=== PATIENT | female | born 1955 | race Caucasian/White ===

== ENCOUNTER 2016-11-30 10:05 | Emergency (ER) | payer OTHER ==
[2016-11-30 10:19] VITALS: BMI 28.3
[2016-11-30 10:22] VITALS: BP 198/97
[2016-11-30] MEDS ORDERED: MORPHINE SULFATE INJ 4 MG IM ONE (10:30)
[2016-11-30] MEDS ORDERED: MORPHINE SULFATE INJ 4 MG ONE (10:32)
--- NOTE | 2016-11-30 10:33 | DR.EXTPAIN ---
HPI - Time seen Time seen: 10:25 - PCP Primary Care Physician: DR. MICHAEL - Complaint/Symptoms Chief Complaint Doctor Comments: I agree with statement. Patient states that she slipped on the floor and landed on her left shoulder. She could not move the arm w/o pain Chief Complaint:: AT 0930 THIS AM PT STATES " I WENT TO THE BATHROOM AT THE [facility] AND THE FLOOR WAS GREECIE AND I FEEL ON THE FLOOT AND MY LEFT SHOULDER IS HURTING " - Source History Provided: Patient - Mode of arrival Mode of Arrival: Ambulatory - Timing Onset of Chief Complaint: 11/30/16 PMH - PMH Past Medical History: No Past Surgical History: Yes Surgical History: Appendectomy - Family History History of Family Medical Conditions: Yes Family Medical History: Hypertension - Social History Does patient currently use any type of tobacco product: No Have you used tobacco products in the last 12 months: No Type of Tobacco Use: None Does any household member use tobacco: No Alcohol Use: None Do you use any recreational Drugs:: No Lives With: Family Lives Where: Home - infectious screening In the last 2 months have you had wt loss of >10#?: NO Have you had fever, night sweats or hemotysis?: No Have you traveled outside the country in the last 6 months?: No Isolation: Standard ROS - Review of Systems Eyes: No Symptoms Reported ENTM: No Symptoms Reported Respiratoy: No Symptoms Reported Cardiovascular: No Symptoms Reported Gastrointestinal/Abdominal: No Symptoms Reported Genitourinary: No Symptoms Reported Neurological: No Symptoms Reported Musculoskeletal: No Symptoms Reported Integumentary: No Symptoms Reported Hematologic/Lymphatic: No Symptoms Reported Endocrine: No Symptoms Reported Psychiatric: No Symptoms Reported All Other Systems: Reviewed and Negative PE - Vital Signs Vitals: Temperature 98.0 F Pulse Rate 70 Respiratory Rate 20 Blood Pressure 198/97 O2 Sat by Pulse Oximetry 99 - General Limitations: No Limitations General Appearance: Alert, In No Apparent Distress - Head Head Exam: Normal Inspection, Atraumatic - Eyes Eye exam: Normal Appearance, PERRL, EOMI - ENT ENT Exam: Normal Exam - Neck Neck Exam: Normal Inspection, Full ROM - Chest Chest Inspection: Normal Inspection - Respiratory Respiratory Exam: Normal Lung Sounds Bilat Respiratory Exam: Bilateral Clear to Auscultation - Cardiovascular Cardiovascular Exam: Regular Rate, Normal Rhythm - Abdominal Exam Abdominal Exam: Normal Inspection, Normal Bowel Sounds Abdominal Tenderness: negative: RUQ, RLQ, LUQ, LLQ, Epigastrium, Suprapubic, Diffuse, Mild, Moderate, Severe, Other - Extremities Extremities Exam: Normal Inspection - Upper Extremities Shoulder Exam: Full ROM (too painful for ROM), Tenderness, Tenderness over AC Joint Arm Exam: Normal Inspection, Full ROM Elbow Exam: Normal Inspection, Full ROM Forearm Exam: Normal Inspection, Full ROM Hand Exam: Normal Inspection, Full ROM Neuromotor Exam: Normal Exam Neurosensory Exam: Normal Exam Hand Tendon Exam: Flexor Digitorium Profundus (Location), Flexor Digitorium Superficialis (Location) - Lower Extremities Hip/Pelvis Exam: Normal Inspection, Full ROM Upper Leg Exam: Normal Inspection Knee Exam: Normal Inspection, Full ROM Lower Leg Exam: Normal Inspection Ankle Exam: Normal Inspection Foot/Toe Exam: Normal Inspection Neurovascular/Tendon Exam: Normal Capillary Refill - Back Back Exam: Normal Inspection, Full ROM - Neurological Neurological Exam: Alert, Oriented X3, CN II-XII Intact - Psychiatric Psychiatric Exam: Normal Affect, Normal Mood - Skin Skin Exam: Warm, Dry, Intact Course - Consultation Consultation Comments: I spoke with Dr Knox at 1115 discussed the left humeral neck fracture; he stated that he would see patient tomorrow in his office. His office staff is to call with the appointment time. ROR - XRAY XRAY Interpreted by: Radiologist (Shoulder: Acute fracture of the left humeral neck) Procedures - Procedure Comments Procedures: Sling and swathe - Diagnosis Discharge Problem: Fracture of neck of left humerus Qualifiers: Encounter type: initial encounter Fracture type: closed Qualified Code(s): S42.212A - Unspecified displaced fracture of surgical neck of left humerus, initial encounter for closed fracture - Discharge Plan Condition: Stable - Follow ups/Referrals Follow ups/Referrals: NFD,None [Primary Care Provider] - 3 days - Instructions
--- NOTE | 2016-11-30 10:59 | RAD ---
HISTORY: Fall with left shoulder pain Study: 3 views of the left shoulder. Comparison: None Findings: Acute fracture of the left humeral neck. The glenohumeral articulation is normal in its appearance. No gross soft tissue abnormalities. The acromioclavicular joint is normal in appearance. IMPRESSION: 1. Acute fracture of the left humeral neck. Reported By:
== END 2016-11-30 12:12 | disposition home or self-care (01) ==
LOC: EDBD → ER 10:30
DX: S42.212A Unspecified displaced fracture of surgical neck of left humerus, initial encounter for closed fracture (principal); W19.XXXA Unspecified fall, initial encounter; Y92.511 Restaurant or cafe as the place of occurrence of the external cause
CPT/HCPCS: 73030; 96372; 99282; 99283; J2270

== ENCOUNTER → 2016-12-01 | Outpatient (CLI) | payer OTHER ==
[2016-11-30 10:22] VITALS: BP 198/97
[2016-12-01 14:19] LABS: BASOPHILS % (AUTO) 0.6 % (0.2-1.0); EOSINOPHILS # (AUTO) 0.1 x10^3/uL (0.0-0.2); EOSINOPHILS % (AUTO) 1.5 % (0.9-2.9); HEMATOCRIT 38.2 % (36.0-47.0); HEMOGLOBIN 13.3 g/dL (12.0-16.0); LYMPHOCYTES # (AUTO) 1.1 X10^3/uL (1.3-2.9); MEAN CORPUSCULAR HEMOGLOBIN 30.6 pg (27.0-34.0); MEAN CORPUSCULAR VOLUME 87.6 fL (80.0-100.0); MEAN PLATELET VOLUME 8.8 fL (7.4-11.0); MONOCYTES # (AUTO) 0.6 x10^3/uL (0.3-0.8); NEUTROPHILS # (AUTO) 5.8 x10^3/uL (2.2-4.8); NEUTROPHILS % (AUTO) 75.9 % (42.0-75.0); PLATELET COUNT 224 X10^3/uL (150.0-450.0); RED BLOOD COUNT 4.35 X10^6/uL (3.5-5.4); RED CELL DISTRIBUTION WIDTH 13.1 % (11.6-16.5); WHITE BLOOD COUNT 7.6 X10^3/uL (3.6-10.0)
[2016-12-01 14:21] LABS: APPEARANCE,URINE SLIGHTLY HAZY (CLEAR); BLOOD/HEMOGLOBIN,URINE 3+ (NEGATIVE); COLOR,URINE YELLOW (YELLOW); GLUCOSE, URINE NEGATIVE (NEGATIVE); KETONES,URINE NEGATIVE (NEGATIVE); NITRITES,URINE NEGATIVE (NEGATIVE); PROTEIN,URINE 1+ (NEGATIVE)
[2016-12-01 14:22] LABS: BACTERIA,URINE NEGATIVE /HPF (NEGATIVE); BILIRUBIN,URINE NEGATIVE (NEGATIVE); LEUKOCYTE ESTERASE ,URINE NEGATIVE (NEGATIVE); RBC,URINE 0-3 /HPF (NEGATIVE); SQUAMOUS EPITHELIAL CELL,UR RARE /HPF (NEGATIVE); UROBILINOGEN,URINE NORMAL (NORMAL)
[2016-12-01 14:33] LABS: ALANINE AMINOTRANSFERASE 26 Units/L (12-78); ALKALINE PHOSPHATASE 51 Units/L (46-116); ASPARTATE AMINO TRANSFERASE 17 Units/L (15-37); BLOOD UREA NITROGEN 15 mg/dL (7-18); CALCIUM 8.7 mg/dL (8.5-10.1); CARBON DIOXIDE 29.6 mmol/L (21-32); CHLORIDE 103 mmol/L (98-107); CREATININE 0.68 mg/dL (0.55-1.02); GLUCOSE 101 mg/dL (65-99); SODIUM 139 mmol/L (136-145); TOTAL PROTEIN 7.4 g/dL (6.4-8.2); eGFR BLACK RACES > 60 (>60); eGFR NON BLACK RACES > 60 (>60)
== END ==
LOC: LAB 10:30 → EDBD 10:30 → LAB 12:49
PROVIDERS: ATTEND Orthopaedic Surgery
DX: Z01.818 Encounter for other preprocedural examination (principal); Z01.810 Encounter for preprocedural cardiovascular examination; Z01.811 Encounter for preprocedural respiratory examination; Z79.899 Other long term (current) drug therapy; Z11.8 Encounter for screening for other infectious and parasitic diseases; S42.292A Other displaced fracture of upper end of left humerus, initial encounter for closed fracture; X58.XXXA Exposure to other specified factors, initial encounter
CPT/HCPCS: 36415; 80053; 81001; 85025; 87641

== ENCOUNTER 2016-12-03 09:36 | Day surgery (SDC) | payer OTHER ==
[2016-12-03] MEDS ORDERED: NS 50 ML IV + SPIKE MINIBAG* 50 ML IV ONE (09:43)
[2016-12-03] MEDS ORDERED: D5 LR 1000 ML 1,000 ML IV ONE (09:43)
[2016-12-03] MEDS ORDERED: ANCEF VIAL 1 GM ONE (09:43)
[2016-12-03] MEDS ORDERED: NAROPIN 0.75% ONE (10:12)
[2016-12-03] MEDS ORDERED: XYLOCAINE 2 % (PLAIN) ONE ×2 (10:13→14:58)
[2016-12-03] MEDS ORDERED: VERSED IVP ONE (10:15)
[2016-12-03] MEDS: FENTANYL INJ 250 mcg ONE ×2 (10:15→15:30)
[2016-12-03] MEDS ORDERED: NS IRRIGATION 1000 ML 1,000 ML with BACITRACIN VIAL 50,000 UNT IR ONE ×4 (12:10→14:20)
[2016-12-03] MEDS ORDERED: BENADRYL INJ 50 MG VIAL IVP PRN (13:37)
[2016-12-03] MEDS ORDERED: ZOFRAN INJ 4 MG VIAL IVP PRN (13:37)
[2016-12-03] MEDS ORDERED: REGLAN INJ 10 MG VIAL IVP PRN (13:37)
[2016-12-03] MEDS ORDERED: PHENERGAN INJ 25 MG IVP PRN (13:37)
[2016-12-03] MEDS ORDERED: MARCAINE 0.25% INJ ONE (13:56)
[2016-12-03] MEDS ORDERED: BACTROBAN OINT ONE (14:03)
[2016-12-03] MEDS ORDERED: PERCOCET TAB 5/325 MG PO PRN (14:48)
[2016-12-03] MEDS ORDERED: ROBINUL ONE (14:58)
[2016-12-03] MEDS ORDERED: DIPRIVAN VIAL ONE (14:58)
[2016-12-03] MEDS ORDERED: VERSED ONE (14:58)
[2016-12-03] MEDS ORDERED: SUPRANE IN ONE (14:58)
[2016-12-03] MEDS ORDERED: QUELICIN (OR ANECTINE) ONE (14:58)
[2016-12-03] MEDS ORDERED: NEOSTIGMINE INJ ONE (14:58)
[2016-12-03] MEDS ORDERED: NORCURON INJ 10 MG VIAL ONE (14:58)
[2016-12-03] MEDS ORDERED: ZOFRAN INJ 4 MG VIAL ONE (14:58)
[2016-12-03] MEDS ORDERED: DILAUDID INJ ONE (15:18)
[2016-12-03] MEDS: DILAUDID INJ IVP PRN ×2 (15:20→15:35)
--- NOTE | 2016-12-03 15:39 | RAD ---
HISTORY: Postop left humeral fracture Study: Left shoulder AP and lateral Comparison: November 30, 2016 Findings: The patient's proximal humeral fracture has undergone open reduction internal fixation with a plate a nd 5 screws. Position and alignment is nearly anatomic. Surgical frances and postsurgical air are pre sent at the operative site. IMPRESSION: Status post open reduction internal fixation proximal humeral fracture Reported By:
[2016-12-03 17:22] VITALS: BP 153/91
== END 2016-12-03 17:00 | disposition home or self-care (01) | DRG 494 ==
LOC: EDBD → SURG1 09:36
PROVIDERS: ATTEND Orthopaedic Surgery
PROC: 0PSD04Z Reposition Left Humeral Head with Internal Fixation Device, Open Approach (ICD-10-PCS; principal; 2016-12-03 08:30)
DX: S42.292A Other displaced fracture of upper end of left humerus, initial encounter for closed fracture (principal); X58.XXXA Exposure to other specified factors, initial encounter
CPT/HCPCS: 64418; 73030; 76000; A4222; S0020; J0330; J0690; J1170; J2001; J2250; J2405; J2710; J3010; J3490; J7120

== ENCOUNTER → 2016-12-15 | Outpatient (CLI) | payer OTHER ==
[2016-12-03 17:22] VITALS: BP 153/91
--- NOTE | 2016-12-15 14:04 | RAD ---
History: Followup of fracture of proximal left humerus Study: AP and lateral views of the left humerus Comparison: December 03, 2016 Findings: There is a side plate and screws over the proximal left humerus for a fracture of the surgi vladimir neck of the left humerus in overall anatomical alignment. Surgical frances remain in place anteri shyann. There is no dislocation. There is callus formation about the fracture site. Impression: Anatomically aligned proximal humeral fracture with internal fixation and callus formatio n Reported By:
== END ==
LOC: RAD 12:05
PROVIDERS: ATTEND Orthopaedic Surgery
DX: S42.292D Other displaced fracture of upper end of left humerus, subsequent encounter for fracture with routine healing (principal); X58.XXXD Exposure to other specified factors, subsequent encounter
CPT/HCPCS: 73060

== ENCOUNTER → 2017-01-12 | Outpatient (CLI) | payer OTHER ==
--- NOTE | 2017-01-13 07:57 | RAD ---
Examination: X-rays of the left shoulder. Clinical history: Fracture left shoulder. Technique: Three views of the left shoulder were obtained. Comparison: 12/15/2016. Findings: There is a fracture of the proximal left humerus, which has been internally fixated with a metallic p late and multiple screws and is in near anatomic reduction, with no appreciable callus formation or p eriosteal reaction noted at the fracture site. No soft tissue abnormality is noted. Impression: 1. Stable fracture of the proximal left humerus, as described above. Reported By:
== END ==
LOC: RAD 12:21
PROVIDERS: ATTEND Orthopaedic Surgery
DX: S42.292D Other displaced fracture of upper end of left humerus, subsequent encounter for fracture with routine healing (principal); X58.XXXD Exposure to other specified factors, subsequent encounter
CPT/HCPCS: 73030

== ENCOUNTER → 2017-08-12 | Outpatient (CLI) | payer OTHER ==
--- NOTE | 2017-08-12 10:55 | RAD ---
Left shoulder, three views Indication: Shoulder pain Comparison: 01/12/2017 Findings: Internally fixated fracture of the proximal left humerus shows progressive interval healing without change in alignment or hardware complication. The fracture appears to be near radiographical ly healed. Mild degenerative changes of the AC joint noted. No new osseous abnormality identified. Impression: Near complete interval healing of the internally fixated proximal humeral fracture without hardware c omplication or new osseous abnormality. Reported By:
== END ==
LOC: RAD 10:18
PROVIDERS: ATTEND Orthopaedic Surgery
DX: S42.292D Other displaced fracture of upper end of left humerus, subsequent encounter for fracture with routine healing (principal); X58.XXXD Exposure to other specified factors, subsequent encounter
CPT/HCPCS: 73030